=== PATIENT | male | born 1980 | race American Indian/Alaskan Native ===

== ENCOUNTER 2024-02-28 10:46 | Inpatient (IN) | payer MEDICAID ==
[2024-02-28] MEDS: Sodium Chloride 0.9% 10 ML Syringe FLUSH PRN (11:20)
[2024-02-28] MEDS: Sodium Chloride 0.9% 1,000 ML IV SCH (11:30)
[2024-02-28 11:32] LABS: BASOPHILS ABSOLUTE AUTO 0.1 K/mm3 (0.0-0.2); BASOPHILS PERCENT AUTO 0.7 % (0.0-1.0); EOSINOPHILS PERCENT AUTO 0.1 % (0.0-6.0); HEMATOCRIT 43.9 % (42.0-52.0); HEMOGLOBIN 13.7 gm/dl (14.0-18.0); IMMATURE GRAN ABSOLUTE AUTO 0.69 K/mm3 (0.00-0.05); IMMATURE GRAN PERCENT AUTO 3.8 % (0.0-0.4); LYMPHOCYTES ABSOLUTE AUTO 2.6 K/mm3 (1.0-4.8); LYMPHOCYTES PERCENT AUTO 14.4 % (24.0-44.0); MEAN CORPUSCULAR HEMOGLOBIN 29.9 pg (28.0-32.0); MEAN CORPUSCULAR HGB CONC 31.2 g/dl (32.0-36.0); MEAN CORPUSCULAR VOLUME 95.9 fl (83.0-99.0); MEAN PLATELET VOLUME 8.9 fl (9.4-12.4); MONOCYTES ABSOLUTE AUTO 0.6 K/mm3 (0.0-0.8); MONOCYTES PERCENT AUTO 3.5 % (0.0-8.0); NEUTROPHILS PERCENT AUTO 77.5 % (41.0-71.0); PLATELET COUNT,PLT 552 K/mm3 (150-400); RED BLOOD CELL COUNT 4.58 M/mm3 (4.52-5.90); WHITE BLOOD CELL COUNT,WBC 18.02 K/mm3 (3.9-11.3)
[2024-02-28 11:47] LABS: ALANINE AMINOTRANSFERASE,ALT 51 U/L (16-63); ALBUMIN 3.8 g/dl (3.4-5.0); ALKALINE PHOSPHATASE 127 U/L (46-116); ASPARTATE AMNIOTRANSFERASE,AST 19 U/L (15-37); BILIRUBIN TOTAL 0.4 mg/dL (0.2-1.0); BLOOD UREA NITROGEN,BUN 31 mg/dL (7-18); BUN/CREATININE RATIO 17.2 (14-18); CALCIUM 9.1 mg/dL (8.5-10.1); CHLORIDE,CL 93 mEq/L (98-107); CREATININE 1.8 mg/dL (0.7-1.3); EST CRCL DRUG DOSING (CG) 59.85 mL/min; ESTIMATED GFR 47 mL/min (>60); MAGNESIUM 2.4 mg/dL (1.8-2.4); POTASSIUM,K 5.5 mEq/L (3.5-5.1); PROTEIN TOTAL,TP 7.6 g/dl (6.4-8.2); SODIUM,NA 134 mEq/L (136-145)
[2024-02-28 11:52] LABS: SLIDE REVIEW ABNORMAL SMEAR
[2024-02-28 12:33] LABS: ANION GAP 41.5 (5-15); CARBON DIOXIDE,CO2 < 5 mEq/L (21-32); GLUCOSE RANDOM 531 mg/dL (70-99)
[2024-02-28] MEDS: Lactated Ringers 1,000 ML IV ONE ×2 (12:52→13:59)
[2024-02-28] MEDS: Insulin Regular in 0.9 % NACL 100 ML IV SCH (13:27)
[2024-02-28 13:43] LABS: OSMOLALITY,SERUM 338 mosm/kg (280-300)
[2024-02-28 13:44] LABS: APPEARANCE,URINE CLEAR (Clear); BILIRUBIN,URINE NEGATIVE (Negative); COLOR,URINE YELLOW (Yellow); GLUCOSE,URINE 2+ (Negative); KETONES,URINE 4+ (Negative); LEUKOCYTE ESTERASE,URINE NEGATIVE (Negative); NITRITE,URINE NEGATIVE (Negative); OCCULT BLOOD,URINE TRACE-LYSED (Negative); PH,URINE 5.5 (5.0-8.0); PROTEIN,URINE 1+ (Negative); UROBILINOGEN,URINE 0.2 (0.2-1.0)
[2024-02-28 13:51] LABS: BACTERIA,URINE RARE /hpf (FEW); EPITHELIAL CELLS,URINE 0-5 /hpf (0-5); HYALINE CASTS,URINE 0-5 /lpf (0-5); MUCUS,URINE RARE /hpf (FEW); WBC,URINE 0-5 /hpf (0-5)
[2024-02-28] MEDS ORDERED: Lactated Ringers 1,000 ML IV SCH (15:15)
[2024-02-28] MEDS: Lactated Ringers 1,000 ML IV SCH (15:17)
[2024-02-28 15:45] LABS: BASOPHILS ABSOLUTE AUTO 0.1 K/mm3 (0.0-0.2); BASOPHILS PERCENT AUTO 0.4 % (0.0-1.0); HEMATOCRIT 41.1 % (42.0-52.0); HEMOGLOBIN 12.8 gm/dl (14.0-18.0); IMMATURE GRAN ABSOLUTE AUTO 0.66 K/mm3 (0.00-0.05); IMMATURE GRAN PERCENT AUTO 2.6 % (0.0-0.4); LYMPHOCYTES ABSOLUTE AUTO 2.9 K/mm3 (1.0-4.8); LYMPHOCYTES PERCENT AUTO 11.5 % (24.0-44.0); MEAN CORPUSCULAR HGB CONC 31.1 g/dl (32.0-36.0); MEAN CORPUSCULAR VOLUME 96.3 fl (83.0-99.0); MEAN PLATELET VOLUME 8.3 fl (9.4-12.4); MONOCYTES ABSOLUTE AUTO 1.2 K/mm3 (0.0-0.8); MONOCYTES PERCENT AUTO 4.9 % (0.0-8.0); NEUTROPHILS ABSOLUTE AUTO 20.3 K/mm3 (1.8-7.7); NEUTROPHILS PERCENT AUTO 80.6 % (41.0-71.0); PLATELET COUNT,PLT 454 K/mm3 (150-400); RED BLOOD CELL COUNT 4.27 M/mm3 (4.52-5.90); WHITE BLOOD CELL COUNT,WBC 25.16 K/mm3 (3.9-11.3)
[2024-02-28 16:11] LABS: A/G RATIO 0.9 (1-2); ALANINE AMINOTRANSFERASE,ALT 46 U/L (16-63); ALBUMIN 3.4 g/dl (3.4-5.0); ALKALINE PHOSPHATASE 119 U/L (46-116); ASPARTATE AMNIOTRANSFERASE,AST 15 U/L (15-37); BILIRUBIN TOTAL 0.4 mg/dL (0.2-1.0); BLOOD UREA NITROGEN,BUN 29 mg/dL (7-18); BUN/CREATININE RATIO 18.1 (14-18); CALCIUM 8.1 mg/dL (8.5-10.1); CHLORIDE,CL 98 mEq/L (98-107); CREATININE 1.6 mg/dL (0.7-1.3); EST CRCL DRUG DOSING (CG) 67.33 mL/min; ESTIMATED GFR 54 mL/min (>60); GLUCOSE RANDOM 383 mg/dL (70-99); POTASSIUM,K 4.9 mEq/L (3.5-5.1); SODIUM,NA 135 mEq/L (136-145)
[2024-02-28 16:19] LABS: ANION GAP 36.9 (5-15); CARBON DIOXIDE,CO2 < 5 mEq/L (21-32)
[2024-02-28] MEDS ORDERED: Acetaminophen 325 MG Tab PO PRN (17:00)
[2024-02-28] MEDS ORDERED: Ondansetron 4 MG/2 ML SDV IV PRN (17:00)
[2024-02-28] MEDS ORDERED: Docusate Sodium 100 MG Cap PO PRN (17:00)
[2024-02-28] MEDS ORDERED: Ondansetron 4 MG Tab.DIS PO PRN (17:00)
[2024-02-28 19:26] LABS: C-REACTIVE PROTEIN 0.15 mg/dL (<0.30); PHOSPHORUS 7.1 mg/dL (2.6-4.7)
[2024-02-28] MEDS: Dextrose 5%-0.9% NaCl with KCl 1,000 ML IV SCH (19:42)
[2024-02-28 19:47] LABS: ANION GAP 30.4 (5-15); BUN/CREATININE RATIO 17.5 (14-18); CALCIUM 7.9 mg/dL (8.5-10.1); CREATININE 1.2 mg/dL (0.7-1.3); EST CRCL DRUG DOSING (CG) 89.77 mL/min; POTASSIUM,K 4.4 mEq/L (3.5-5.1)
[2024-02-28 19:52] LABS: AMPHETAMINES SCREEN, URINE NEGATIVE (CUTOFF=500); BARBITURATE SCREEN,URINE NEGATIVE (CUTOFF=200); BENZODIAZEPINES SCREEN,URINE NEGATIVE (CUTOFF=150); BUPRENORPHINE SCREEN,URINE NEGATIVE (CUTOFF=10); METHADONE SCREEN, URINE NEGATIVE (CUT0FF=200); METHAMPHETAMINES SCREEN, URINE PRESUMPTIVE POSITIVE (CUTOFF=500); OXYCODONE SCREEN,URINE NEGATIVE (CUT0FF=100); THC SCREEN,URINE 20 NG/ML NEGATIVE (CUTOFF=50)
[2024-02-28] MEDS ORDERED: busPIRone 5 MG Tab PO SCH (21:00)
[2024-02-28] MEDS: Sodium Chloride 0.9% 1,000 ML IV ONE (21:00)
[2024-02-28] MEDS: cefTRIAXone 1 GM in Sodium Chloride 0.9% 100 ML IV SCH (21:09)
[2024-02-28] MEDS: Pantoprazole 40 MG Tab.CR PO SCH (21:09)
[2024-02-28 23:31] LABS: ANION GAP 21.8 (5-15); CALCIUM 7.6 mg/dL (8.5-10.1); CREATININE 1.2 mg/dL (0.7-1.3); EST CRCL DRUG DOSING (CG) 90.38 mL/min; POTASSIUM,K 4.8 mEq/L (3.5-5.1)
[2024-02-29 03:57] LABS: ANION GAP 15.1 (5-15); BUN/CREATININE RATIO 12.7 (14-18); CALCIUM 7.3 mg/dL (8.5-10.1); CREATININE 1.1 mg/dL (0.7-1.3); EST CRCL DRUG DOSING (CG) 98.6 mL/min; POTASSIUM,K 4.1 mEq/L (3.5-5.1)
[2024-02-29] MEDS: Insulin Glargine,Human Rec. Analog 100 Units/ML 3 ML Pen SUBCUT ONE (04:26)
[2024-02-29] MEDS: Sodium Chloride 0.9% 1,000 ML IV SCH (04:27)
[2024-02-29] MEDS: Insulin Lispro 100 Unit/ML 3 ML KwikPen SUBCUT SCH ×3 (07:28→12:33)
[2024-02-29 07:48] LABS: BASOPHILS PERCENT AUTO 0.2 % (0.0-1.0); EOSINOPHILS PERCENT AUTO 0.1 % (0.0-6.0); HEMATOCRIT 30.2 % (42.0-52.0); IMMATURE GRAN ABSOLUTE AUTO 0.09 K/mm3 (0.00-0.05); IMMATURE GRAN PERCENT AUTO 0.9 % (0.0-0.4); LYMPHOCYTES ABSOLUTE AUTO 1.7 K/mm3 (1.0-4.8); LYMPHOCYTES PERCENT AUTO 18.3 % (24.0-44.0); MEAN CORPUSCULAR HEMOGLOBIN 29.9 pg (28.0-32.0); MEAN CORPUSCULAR HGB CONC 33.1 g/dl (32.0-36.0); MEAN CORPUSCULAR VOLUME 90.4 fl (83.0-99.0); MEAN PLATELET VOLUME 8.2 fl (9.4-12.4); MONOCYTES ABSOLUTE AUTO 0.7 K/mm3 (0.0-0.8); MONOCYTES PERCENT AUTO 7.5 % (0.0-8.0); NEUTROPHILS ABSOLUTE AUTO 6.9 K/mm3 (1.8-7.7); NRBC ABSOLUTE 0.02 (0.00-0.02); NRBC PERCENT 0.2 % (0.0-0.2); RED BLOOD CELL COUNT 3.34 M/mm3 (4.52-5.90); WHITE BLOOD CELL COUNT,WBC 9.49 K/mm3 (3.9-11.3)
[2024-02-29 07:49] LABS: A/G RATIO 0.9 (1-2); ALBUMIN 2.2 g/dl (3.4-5.0); ANION GAP 20.7 (5-15); BILIRUBIN TOTAL 0.4 mg/dL (0.2-1.0); BUN/CREATININE RATIO 14.4 (14-18); CALCIUM 6.3 mg/dL (8.5-10.1); CREATININE 0.9 mg/dL (0.7-1.3); EST CRCL DRUG DOSING (CG) 120.51 mL/min; MAGNESIUM 1.4 mg/dL (1.8-2.4); POTASSIUM,K 3.7 mEq/L (3.5-5.1); PROTEIN TOTAL,TP 4.6 g/dl (6.4-8.2)
[2024-02-29 07:50] LABS: PLATELET COUNT,PLT 332 K/mm3 (150-400)
[2024-02-29] MEDS: Enoxaparin 40 MG/0.4 ML Syringe SUBCUT SCH ×2 (08:32→09:00)
[2024-02-29] MEDS ORDERED: VENLAFAXINE HCL 75 MG PO SCH (09:00)
[2024-02-29] MEDS: Sodium Chloride 0.9% 1,000 ML IV ONE (11:40)
[2024-02-29 16:12] LABS: HEMOGLOBIN A1C 13.3 %
[2024-02-29 16:21] LABS: HEMATOCRIT 34.5 % (42.0-52.0); HEMOGLOBIN 11.6 gm/dl (14.0-18.0); MEAN CORPUSCULAR HEMOGLOBIN 30.1 pg (28.0-32.0); MEAN CORPUSCULAR HGB CONC 33.6 g/dl (32.0-36.0); MEAN CORPUSCULAR VOLUME 89.6 fl (83.0-99.0); MEAN PLATELET VOLUME 8.2 fl (9.4-12.4); PLATELET COUNT,PLT 346 K/mm3 (150-400); RED BLOOD CELL COUNT 3.85 M/mm3 (4.52-5.90); WHITE BLOOD CELL COUNT,WBC 9.04 K/mm3 (3.9-11.3)
[2024-02-29 16:53] LABS: ALBUMIN 2.6 g/dl (3.4-5.0); BILIRUBIN TOTAL 0.2 mg/dL (0.2-1.0); CALCIUM 7.6 mg/dL (8.5-10.1); CREATININE 1.2 mg/dL (0.7-1.3); EST CRCL DRUG DOSING (CG) 90.38 mL/min; MAGNESIUM 1.7 mg/dL (1.8-2.4); PROTEIN TOTAL,TP 5.3 g/dl (6.4-8.2)
[2024-02-29] MEDS: Insulin Glargine,Human Rec. Analog 100 Units/ML 3 ML Pen SUBCUT SCH (20:16)
[2024-02-29] MEDS ORDERED: Insulin Glargine,Human Rec. Analog 100 Units/ML 3 ML Pen SUBCUT SCH (21:00)
[2024-03-01] MEDS ORDERED: Insulin Lispro 100 Unit/ML 3 ML KwikPen SUBCUT SCH
[2024-03-01 04:52] LABS: BASOPHILS PERCENT AUTO 0.2 % (0.0-1.0); EOSINOPHILS PERCENT AUTO 0.3 % (0.0-6.0); HEMATOCRIT 33.9 % (42.0-52.0); HEMOGLOBIN 11.4 gm/dl (14.0-18.0); IMMATURE GRAN ABSOLUTE AUTO 0.04 K/mm3 (0.00-0.05); IMMATURE GRAN PERCENT AUTO 0.7 % (0.0-0.4); LYMPHOCYTES ABSOLUTE AUTO 2.8 K/mm3 (1.0-4.8); LYMPHOCYTES PERCENT AUTO 44.9 % (24.0-44.0); MEAN CORPUSCULAR HEMOGLOBIN 30.2 pg (28.0-32.0); MEAN CORPUSCULAR HGB CONC 33.6 g/dl (32.0-36.0); MEAN CORPUSCULAR VOLUME 89.7 fl (83.0-99.0); MEAN PLATELET VOLUME 7.9 fl (9.4-12.4); MONOCYTES ABSOLUTE AUTO 0.5 K/mm3 (0.0-0.8); MONOCYTES PERCENT AUTO 7.8 % (0.0-8.0); NEUTROPHILS ABSOLUTE AUTO 2.8 K/mm3 (1.8-7.7); NEUTROPHILS PERCENT AUTO 46.1 % (41.0-71.0); PLATELET COUNT,PLT 290 K/mm3 (150-400); RED BLOOD CELL COUNT 3.78 M/mm3 (4.52-5.90); WHITE BLOOD CELL COUNT,WBC 6.15 K/mm3 (3.9-11.3)
[2024-03-01 05:28] LABS: A/G RATIO 0.9 (1-2); ALBUMIN 2.4 g/dl (3.4-5.0); ANION GAP 13.4 (5-15); BILIRUBIN TOTAL 0.2 mg/dL (0.2-1.0); BUN/CREATININE RATIO 12.5 (14-18); CALCIUM 7.8 mg/dL (8.5-10.1); CREATININE 0.8 mg/dL (0.7-1.3); EST CRCL DRUG DOSING (CG) 135.57 mL/min; MAGNESIUM 1.6 mg/dL (1.8-2.4); POTASSIUM,K 3.4 mEq/L (3.5-5.1); PROTEIN TOTAL,TP 5.1 g/dl (6.4-8.2)
[2024-03-01] MEDS ORDERED: Magnesium Sulfate (4.06 MEQ/ML) 5 GM/10 ML SDV IV ONE (06:56)
[2024-03-01] MEDS: Potassium Chloride 20 MEQ Tab.ER PO ONE (07:40)
[2024-03-01] MEDS: Magnesium Sulfate/Water 2 GM in Premix Bag 1 BAG IV ONE (07:41)
[2024-03-01] MEDS ORDERED: Insulin Glargine,Human Rec. Analog 100 Units/ML 3 ML Pen SUBCUT SCH ×2 (09:00)
== END 2024-03-01 14:15 | disposition home or self-care (01) | DRG 638 ==
LOC: JD.ED 10:46 → JD.ICU 16:58
PROVIDERS: ADMIT Pediatrics; ATTEND Hospitalist
DX: E10.10 Type 1 diabetes mellitus with ketoacidosis without coma (principal); N17.9 Acute kidney failure, unspecified; I10 Essential (primary) hypertension; F41.9 Anxiety disorder, unspecified; F32.A Depression, unspecified; E86.0 Dehydration; E78.5 Hyperlipidemia, unspecified; D72.825 Bandemia; Z91.199 Patient's noncompliance with other medical treatment and regimen due to unspecified reason; Z88.0 Allergy status to penicillin; Z79.899 Other long term (current) drug therapy
CPT/HCPCS: 36415; 70450; 70450-26; 71045; 71045-26; 80048; 80053; 80306; 80307; 81001; 82010; 82800; 82947; 83036; 83735; 83930; 84100; 84145; 85025; 85027; 86140; 87040; 99223; 99232; 99239; 99285; A9270-GY; J0696; J1650; J1815; J1815-GY; J3475; J3480; J3490; J7030; J7120